=== PATIENT | male | born 1965 | race Caucasian/White ===

== ENCOUNTER 2016-10-27 09:38 | Day surgery (SDC) | payer BC ==
[2016-10-16 10:19] VITALS: BMI 32.0
[2016-10-27] MEDS ORDERED: ROCURONIUM BROMIDE 50 MG/5 ML VIAL ONE (10:29)
[2016-10-27] MEDS ORDERED: MIDAZOLAM HCL 2 MG/2 ML SINGLE DOSE VIAL ONE (10:29)
--- NOTE | 2016-10-27 11:06 | HP ---
History & Physical Update - History History: No Change - Physical Physical: No Change - Assessment Assessment: No Change - Plan Currently as noted:: Repair ventral hernia; possible mesh; pre-op evaluation done by Dr. Brigid Looney
[2016-10-27] MEDS ORDERED: DEXAMETHASONE SOD PHOSPHATE 4 MG/1 ML VIAL ONE (11:35)
[2016-10-27] MEDS ORDERED: LIDOCAINE HCL 1%, 10 MG/ML (20ML VIAL) INF ONE (11:36)
[2016-10-27] MEDS ORDERED: BUPIVACAINE HCL/PF 0.5% (5MG/ML) 10 ML VIAL IJ ONE (11:36)
[2016-10-27] MEDS ORDERED: HYDROmorphone HCL/PF 1 MG/ML VIAL (FOR PYXIS CHARGING ONLY) ONE (11:37)
[2016-10-27] MEDS ORDERED: NEOSTIGMINE METHYLSULFATE 0.5 MG/ML - 10 ML MDV ONE (11:53)
[2016-10-27] MEDS ORDERED: GLYCOPYRROLATE 0.2 MG/1 ML VIAL ONE (11:53)
--- NOTE | 2016-10-27 12:16 | OP ---
Operative Note - Note: Operative Date: 10/27/16 Pre-Operative Diagnosis: ventral hernia Operation: repair incarcerated ventral hernia Findings: 2.0 cm defect w/ incarcerated fat Post-Operative Diagnosis: Other (incarcerated ventral hernia) Surgeon: Chan Marcos Producer: Paul Scott Anesthesiologist/SHIPFITTER HELPER: Yuliana Amador Anesthesia: General Specimens Removed: fat and sac Estimated Blood Loss (mls): 10
[2016-10-27] MEDS ORDERED: ONDANSETRON 4 MG/2 ML VIAL IVPUSH PRN (12:30)
[2016-10-27] MEDS ORDERED: LACTATED RINGERS SOLUTION 1,000 ML IV SCH (12:30)
[2016-10-27] MEDS ORDERED: oxyCODONE HCL 5 MG TABLET PO PRN ×2 (12:30)
--- NOTE | 2016-10-27 12:33 | SURG ---
Surgery Enterprise Systems Administrator Note Enterprise Systems Administrator: Paul Scott PA-C Date of Service: 10/27/16 Diagnosis: Incarcerated ventral hernia Procedure: Open repair incarcerated ventral hernia (primary closure) I was present for the entirety of the operative procedure. For further detail, please refer to operative report. Visit type - Case Type Case Type: Scheduled Admission - New patient This patient is new to me today: Yes Date on this admission: 10/27/16
[2016-10-27 14:20] VITALS: TEMP 97.8
[2016-10-27 19:29] VITALS: BP 122/80; PULSE 72
--- NOTE | 2016-10-28 16:02 | PATH ---
Surgical Pathology Report Patient Name: YURY SANDOVAL [facility]. Rec. #: [id number] /Age/Gender: 1965 (Age: 51) / M Account: [id number] Location: [facility] Taken: 10/27/2016 Received: 10/27/2016 Reported: 10/28/2016 Physicians: Chan Marcos MD Specimen(s) Received HERNIA SAC AND FAT Clinical History Incarcerated ventral hernia Final Diagnosis HERNIA SAC AND FAT, VENTRAL HERNIA REPAIR: BENIGN FOCALLY MESOTHELIAL LINED FIBROMEMBRANOUS TISSUE CONSISTENT WITH HERNIA SAC AND BENIGN FATTY TISSUE. Electronically Signed Marcell Esteban M.D. Gross Description Received in formalin labeled "sac and fat of hernia" is a 4.0 x 2.2 x 1.2 cm babb-pink, irregular portion of fibromembranous tissue containing yellow, lobulated adipose tissue. Home Stager sections are submitted in one cassette. /10/27/2016 [facility]
--- NOTE | 2016-10-29 12:51 | OP ---
DATE OF OPERATION: 10/27/2016 PREOPERATIVE DIAGNOSIS: Ventral hernia. POSTOPERATIVE DIAGNOSIS: Incarcerated ventral hernia. PROCEDURE: Repair of incarcerated ventral hernia. SURGEON: Chan Marcos MD DISCHARGING MACHINE OPERATOR: Paul Scott PA-C ANESTHESIA: General. OPERATIVE FINDINGS: There was an incarcerated ventral hernia just above the umbilicus, containing incarcerated preperitoneal fat. The defect in the fascia was approximately 2 cm in greatest dimension. The rest of the findings were unremarkable. DESCRIPTION OF PROCEDURE: The patient was placed on the operating table in the supine position, and after the induction of general anesthesia, the patient's abdomen was prepped with ChloraPrep and draped in sterile fashion. A timeout was taken, and then, a midline incision made above the umbilicus and proximal for several centimeters. This was taken down through skin and subcutaneous tissue and the hernia sac identified. The sac was entered, and incarcerated preperitoneal fat and sac were excised using electrocautery and sent for pathological examination. The undersurface of the fascia was cleared, and then, the hernia repaired using multiple 0 Ti-Cron horizontal mattress sutures. Hemostasis was checked for and noted to be good, and then, the operative field was infiltrated with 0.50% Marcaine and 1% Xylocaine. The wound was irrigated with sterile saline, hemostasis verified again, and then, the incision closed in layers with interrupted 0 Vicryl for the deep subcutaneous tissue, interrupted 3-0 Vicryl for the deep dermis, and 4-0 Biosyn in a subcuticular continuous fashion to reapproximate the skin edges. Steri-Strips and dry sterile dressings were placed and the procedure terminated at this point and the patient aroused from general anesthesia and transferred to the postanesthesia care unit in stable condition, awake and alert. ESTIMATED BLOOD LOSS: Minimal. DRAINS: None. SPECIMENS: Preperitoneal fat and sac to Pathology. I, Chan Marcos MD, was physically present in the operating room from the time the patient was placed on the operating table until he was transferred to the postanesthesia care unit in my accompaniment. MD HUGO Lyles/[id number]
== END 2016-10-27 19:15 | disposition home or self-care (01) ==
LOC: JASU-SURG 09:38
PROVIDERS: ATTEND Surgery
PROC: 0WUF0JZ Supplement Abdominal Wall with Synthetic Substitute, Open Approach (ICD-10-PCS; principal; 2016-10-27 11:00)
DX: K43.6 Other and unspecified ventral hernia with obstruction, without gangrene (principal)
CPT/HCPCS: 88302-TC; 94760

== ENCOUNTER 2017-07-13 07:37 | Observation (INO) | payer BC ==
--- NOTE | 2017-07-13 07:50 | PDOC ---
History of Present Illness - General Chief Complaint: Chest Pain Stated Complaint: CHEST PAIN Time Seen by Provider: 07/13/17 07:49 - History of Present Illness Initial Comments: 07/13/17 07:49 Mr. Penn is a 52 yo male w/ pmh of HTN who presents after experiencing an episode of chest tightness, light headed-ness and palpitations earlier today. Patient works for [employer] and was walking around outside when this episode started. He reports it also involved some back tightness but denies any radiating pain. Patient reports his symptoms have mostly resolved however he wanted to come in to get checked out. Patient had otherwise been in his normal health before this. The patient denies chest pain, shortness of breath, and headache. Denies fever, chills, nausea, vomit, diarrhea and constipation. Denies dysuria, frequency, urgency and hematuria. Allergies: NKDA Past History - Past Medical History Allergies/Adverse Reactions: Allergies Allergy/AdvReac Type Severity Reaction Status Date / Time No Known Allergies Allergy Verified 07/13/17 07:39 Home Medications: Ambulatory Orders NK [No Known Home Medication] 07/13/17 Anemia: Yes COPD: No DVT: No HTN: Yes (ON NONE MEDS) - Surgical History Abdominal Surgery: Yes (hernia umbilical) - Suicide/Smoking/Psychosocial Hx Smoking Status: No Smoking History: Never smoked Have you smoked in the past 12 months: No Number of Cigarettes Smoked Daily: 0 Information on smoking cessation initiated: No Hx Alcohol Use: Yes (RARE) Drug/Substance Use Hx: No Substance Use Type: Alcohol Review of Systems - Review of Systems Comments:: 07/13/17 07:49 GENERAL/CONSTITUTIONAL: No fever or chills. No weakness. HEAD, EYES, EARS, NOSE AND THROAT: No change in vision. No ear pain or discharge. No sore throat. CARDIOVASCULAR:+Chest tightness as described with episde of lightheaded feeling. No shortness of breath RESPIRATORY: No cough, wheezing, or hemoptysis. GASTROINTESTINAL: No nausea, vomiting, diarrhea or constipation. GENITOURINARY: No dysuria, frequency, or change in urination. MUSCULOSKELETAL: +Transient back tightness. No joint or muscle swelling or pain. SKIN: No rash NEUROLOGIC: No headache, vertigo, loss of consciousness, or change in strength/ sensation. ENDOCRINE: No increased thirst. No abnormal weight change HEMATOLOGIC/LYMPHATIC: No anemia, easy bleeding, or history of blood clots. ALLERGIC/IMMUNOLOGIC: No hives or skin allergy. *Physical Exam - Vital Signs Last Vital Signs Temp Pulse Resp BP Pulse Ox 97.9 F 95 H 18 136/95 96 07/13/17 07:39 07/13/17 07:39 07/13/17 07:39 07/13/17 07:39 07/13/17 07:39 - Physical Exam Comments: 07/13/17 07:49 GENERAL: Awake, alert, and fully oriented, in no acute distress HEAD: No signs of trauma, normocephalic, atraumatic EYES: PERRLA, EOMI, sclera anicteric, conjunctiva clear ENT: Auricles normal inspection, hearing grossly normal, nares patent, oropharynx clear without exudates. Moist mucosa NECK: Normal ROM, supple, no lymphadenopathy, JVD, or masses LUNGS: No distress, speaks full sentences, clear to auscultation bilaterally HEART: Regular rate and rhythm, normal S1 and S2, no murmurs, rubs or gallops, peripheral pulses normal and equal bilaterally. ABDOMEN: Soft, nontender, normoactive bowel sounds. No guarding, no rebound. No masses EXTREMITIES: Normal inspection, Normal range of motion, no edema. No clubbing or cyanosis. NEUROLOGICAL: Cranial nerves II through XII grossly intact. Normal speech, normal gait, no focal sensorimotor deficits SKIN: Warm, Dry, normal turgor, no rashes or lesions noted. Heart Score/ECG Review - History History: Highly suspicious - Electrocardiogram EKG: Non specific repolarization disturbance - Age Age: 45-65 - Risk Factors Risk Factors Heart Score: Yes Hx Hypertension Based on the list above the patient has:: 1-2 risk factors - Troponin Troponin: </= normal limit - Score Heart Score - Total: 5 ED Treatment Course - LABORATORY CBC & Chemistry Diagram: 07/13/17 08:00 07/13/17 08:00 Medical Decision Making - Medical Decision Making 07/13/17 08:30 Mr. Penn is a 52 yo male w/ pmh as described who presents for evaluation after transient cardiac symptoms. Cardiac evaluation begun. 07/13/17 09:46 Labs grossly unconcerning as below. Initial EKG showed non-specific ST depression; resolved on 2nd EKG. Given patient's concerning history and HEART score of 5, hospitalist paged for admission for observation and cardiac evaluation. 07/13/17 09:56 Patient admitted to Hospitalist for further care. *DC/Admit/Observation/Transfer Diagnosis at time of Disposition: Chest pain Qualifiers: Chest pain type: unspecified Qualified Code(s): R07.9 - Chest pain, unspecified - Discharge Dispostion Decision to Admit order: Yes - Referrals Referrals: Cristian Melendez MD [Primary Care Provider] - - Patient Instructions - Post Discharge Activity
[2017-07-13] MEDS ORDERED: ASPIRIN 325 MG TABLET PO ONE (07:56)
[2017-07-13] MEDS ORDERED: ASPIRIN 325 MG TABLET ONE (07:57)
[2017-07-13 08:10] LABS: BASO % 0.6 % (0-2.0); EOS % 2.1 % (0-4.5); HEMATOCRIT 36.3 % (35.4-49); HEMOGLOBIN 11.6 GM/dL (11.7-16.9); MCH 21.4 pg (25.7-33.7); MCHC 31.9 g/dl (32.0-35.9); MEAN CELL VOLUME 67.2 fl (80-96); MEAN PLT VOLUME 7.7 fl (7.5-11.1); MONO % 10.1 % (3.8-10.2); NEUT % 69.2 % (42.8-82.8); PLATELET COUNT 229 K/MM3 (134-434); RBC 5.41 M/mm3 (4.00-5.60); RDW 16.7 % (11.9-15.9); WHITE BLOOD COUNT 5.9 K/mm3 (4.0-10.0)
[2017-07-13 08:34] LABS: ANION GAP 8 (8-16); BILIRUBIN,TOTAL 0.4 mg/dL (0.2-1.0); BLOOD UREA NITROGEN 14 mg/dL (7-18); CALCIUM 8.9 mg/dL (8.5-10.1); CHLORIDE 106 mmol/L (98-107); CO2 24 mmol/L (21-32); CREATININE 1.3 mg/dL (0.7-1.3); GLUCOSE,RANDOM 88 mg/dL (74-106); SGOT/AST 19 U/L (15-37); SGPT/ALT 24 U/L (12-78); SODIUM 138 mmol/L (136-145); TOT PROT 7.8 g/dl (6.4-8.2)
[2017-07-13 08:37] LABS: ALK PHOS 65 U/L (45-117)
--- NOTE | 2017-07-13 10:07 | PDOC ---
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 The pain lasted about 20 minutes, then resolved. Now has some persistent lightheadedness but no further chest pain. Previously unlimited exercise tolerance, no recent travel or unilateral leg swelling, nonsmoker, no significant family history of early heart attack or stroke. - Physicial Exam PE: 07/13/17 10:04 Vital signs normal Laying comfortably in stretcher, obese Heart is regular, lungs are clear no edema - Medical Decision Making 07/13/17 10:07 52-year-old female with history of hypertension presents with exertional chest pain this morning, now resolved. Description is concerning for anginal equivalent, he had a stress test many years ago that was normal. Chest pain protocol initiated EKG with question baseline artifact versus submillimeter ST depression in V4 through V6, a repeat EKG is normal. Troponin and chest x-ray are normal Given aspirin, will need admission for further cardiac workup Heart Score/ECG Review #1 General ECG Interpretation: Sinus Rhythm, Normal Rate, Normal Intervals, No acute ischemic changes (baseline v. sub-mm ST depression V4-V6) #2 General ECG Interpretation: Sinus Rhythm, Normal Rate, Normal Intervals, No acute ischemic changes
[2017-07-13 10:09] LABS: PLATELET ESTIMATE NORMAL
--- NOTE | 2017-07-13 10:47 | HP ---
CHIEF COMPLAINT: chest tightness, shortness of breath PCP: HISTORY OF PRESENT ILLNESS: Patient is a 52 year old male with a significant past medical history of hypertension (previously on BP meds but stopped), he reports that he has been told that he has had anemia. He is obese with a BMI of 32. He works for [employer] and was in his usual state of health until this morning. 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 He then began to develop chest tightness on flat surface walking associated with dizziness, shortness of breath and palpitations. This lasted for less than half hour, then resolved. He presents to the ED for further workup as he still feels lightheaded. Denies chest pain on exam. No further shortness of breath. Never had this chest tightness before. He does not smoke. He was told he has hypertension in the past but reports non compliance with his medications (was on Benicar). Does not take baby aspirin or any other medications. He is a patient of Dr. Truong but has not seen him for over a year. ER course was notable for: (1) trop 0.02 (2) (3) Recent Travel: PAST MEDICAL HISTORY: PAST SURGICAL HISTORY: Social History: Smoking: denies Alcohol: denies Drugs: denies Family History: Allergies No Known Allergies Allergy (Verified 07/13/17 07:39) HOME MEDICATIONS: Home Medications Medication Instructions Recorded NK [No Known Home Medication] 07/13/17 PHYSICAL EXAMINATION Vital Signs - 24 hr 07/13/17 07/13/17 07:39 08:55 Temperature 97.9 F Pulse Rate 95 H Respiratory 18 Rate Blood Pressure 136/95 O2 Sat by Pulse 96 97 Oximetry (%) GENERAL: Awake, alert, and fully oriented, in no acute distress. HEAD: Normal with no signs of trauma. EYES: Pupils equal, round and reactive to light, extraocular movements intact, sclera anicteric, conjunctiva clear. No lid lag. EARS, NOSE, THROAT: Ears normal, nares patent, oropharynx clear without exudates. Moist mucous membranes. NECK: Normal range of motion, supple without lymphadenopathy, JVD, or masses. LUNGS: Breath sounds equal, clear to auscultation bilaterally. No wheezes, and no crackles. No accessory muscle use. HEART: Regular rate and rhythm, normal S1 and S2 without murmur, rub or gallop. ABDOMEN: Soft, nontender, not distended, normoactive bowel sounds, no guarding, no rebound, no masses. No hepatomegaly or splenomegaly. MUSCULOSKELETAL: Normal range of motion at all joints. No bony deformities or tenderness. No CVA tenderness. UPPER EXTREMITIES: 2+ pulses, warm, well-perfused. No cyanosis. No clubbing. No peripheral edema. LOWER EXTREMITIES: 2+ pulses, warm, well-perfused. No calf tenderness. No peripheral edema. NEUROLOGICAL: Cranial nerves II-XII intact. Normal speech. Normal gait. PSYCHIATRIC: Cooperative. Good eye contact. Appropriate mood and affect. SKIN: Warm, dry, normal turgor, no rashes or lesions noted, normal capillary refill. Laboratory Results - last 24 hr 07/13/17 07/13/17 08:00 08:00 WBC 5.9 RBC 5.41 Hgb 11.6 L D Hct 36.3 MCV 67.2 L MCH 21.4 L D MCHC 31.9 L RDW 16.7 H Plt Count 229 D MPV 7.7 Neutrophils % 69.2 Lymphocytes % 18.0 D Monocytes % 10.1 Eosinophils % 2.1 Basophils % 0.6 Nucleated RBC % 0 Platelet Estimate Normal Polychromasia 1+ Microcytosis 1+ Sodium 138 Potassium 4.0 Chloride 106 Carbon Dioxide 24 Anion Gap 8 BUN 14 D Creatinine 1.3 D Creat Clearance w eGFR 58.20 Random Glucose 88 Calcium 8.9 Total Bilirubin 0.4 D AST 19 ALT 24 D Alkaline Phosphatase 65 D Creatine Kinase 129 Troponin I < 0.02 Total Protein 7.8 Albumin 4.0 ASSESSMENT/PLAN: Patient is a 52 year old male with a significant past medical history of hypertension (previously on BP meds but stopped), he reports that he has been told that he has had anemia. He is obese with a BMI of 32. He works for [employer] and was in his usual state of health until this morning. 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 He then began to develop chest tightness on flat surface walking associated with dizziness, shortness of breath and palpitations. This lasted for less than half hour, then resolved. He presents to the ED for further workup as he still feels lightheaded. Denies chest pain on exam. No further shortness of breath. Never had this chest tightness before. He does not smoke. He was told he has hypertension in the past but reports non compliance with his medications (was on Benicar). Does not take baby aspirin or any other medications. He is a patient of Dr. Truong but has not seen him for over a year. Chest pain Rule out ACS heart score 5 Lipid panel, hmga1c, iron studies ordered Monitor on tele trops x 1 negative EKG to be repeated prior to d/c Echo ordered Cardiology consulted Hypertension On no home meds Heme: Hx of of anemia Iron studies ordered Low MCV F.E.N . Fluids: tolerating PO Electrolytes: monitor, wnl on last cmp Nutrition: low salt Prophy: DVT: LOS < 48 hours GI: deferred Disposition: full code Hospitalist Screening - Colonoscopy Questionnaire Colonoscopy Questionnaire: Colonoscopy Questionnaire
--- NOTE | 2017-07-13 11:02 | CON.CARD ---
Consult Consult Specialty:: cardiology Reason for Consultation:: chest tightness - History of Present Illness Chief Complaint: Pt A&Ox3; asymptomatic. His and sister are present. History of Present Illness: Mr. Penn is a 52 yo white male ([employer]) w/ pmh of HTN ( medications were "not needed anymore" a few months ago), sleep apnea, and obesity, who presents after experiencing an episode of chest tightness, light headedness and palpitations earlier today. Patient works for [employer] and was walking around outside early this morning when this episode started; it was left central anterior chest wall, moderately severe (8/10) in severity, and lasted about an hour. At one point he had a numb feeling in his left arm. He reports it also involved some back tightness. Patient reports his symptoms have mostly resolved however he wanted to come in to get checked out. Patient had otherwise been in his normal health before this. (+) mental and physical stress at work The patient denies chest pain, shortness of breath, and headache. Denies fever, chills, nausea, vomit, diarrhea and constipation. Denies dysuria, frequency, urgency and hematuria. Allergies: NKDA - History Source History Provided By: Patient, Family Member, Medical Record Limitations to Obtaining History: No Limitations - Past Medical History Psych: Yes: Anxiety - Alcohol/Substance Use Hx Alcohol Use: Yes (RARE) - Smoking History Smoking history: Never smoked Have you smoked in the past 12 months: No Aproximately how many cigarettes per day: 0 Home Medications - Allergies Allergies/Adverse Reactions: Allergies Allergy/AdvReac Type Severity Reaction Status Date / Time No Known Allergies Allergy Verified 07/13/17 07:39 - Home Medications Home Medications: Ambulatory Orders NK [No Known Home Medication] 07/13/17 Family Disease History - Family Disease History Family History: Denies - Risk Factors Known Risk Factors: Yes: Age, Gender, Hypercholesterolemia, Hypertension, Physical Inactivity Vital Signs: Vital Signs Temperature 97.9 F 07/13/17 07:39 Pulse Rate 95 H 07/13/17 07:39 Respiratory Rate 18 07/13/17 07:39 Blood Pressure 136/95 07/13/17 07:39 O2 Sat by Pulse Oximetry (%) 97 07/13/17 08:55 Constitutional: Yes: Well Nourished, Anxious Eyes: Yes: WNL HENT: Yes: WNL - Other Data Labs, Other Data: CBC, BMP 07/13/17 08:00 07/13/17 08:00 Troponin, BNP 07/13/17 08:00 Troponin I < 0.02 Troponin, BNP 07/13/17 08:00 Troponin I < 0.02 Imaging - Results Chest X-ray: Image Reviewed (no acute pathology) EKG: Image Reviewed (NSR; LAD;) Problem List - Problems (1) Chest tightness Assessment/Plan: chest tightness with exertion. Relatively sedentary lifestyle. Obesity Sleep apnea. Plan: Serial EKG Serial TNI (initial is < 0.02). ASA Stress treadmill MIBI if no significant increase in TNI. Code(s): R07.89 - OTHER CHEST PAIN (2) HTN (hypertension) Assessment/Plan: Serial BP checks; pt had been on medications until a few months ago because he reports no longer needing them. F/u ECHO for LVEF, wall thickness and motion (?septal changes on EKG). Code(s): I10 - ESSENTIAL (PRIMARY) HYPERTENSION (3) Obesity Assessment/Plan: Pt weighed 190 lbs in his 20s; he now weighs 270 lbs, with increase predominately truncal. Discussed need to make diet and exercise changes. Code(s): E66.9 - OBESITY, UNSPECIFIED (4) Physically inactive Code(s): Z72.3 - LACK OF PHYSICAL EXERCISE
[2017-07-13 11:56] LABS: CHOLESTEROL 142 mg/dL (50-200); TRIGLYCERIDES 168 mg/dL (35-160)
[2017-07-13 12:03] LABS: HDL CHOLESTEROL 35 mg/dL (40-60)
--- NOTE | 2017-07-13 13:31 | EKG ---
Test Reason : Blood Pressure : / mmHG Vent. Rate : 095 BPM Atrial Rate : 095 BPM P-R Int : 178 ms QRS Dur : 102 ms QT Int : 356 ms P-R-T Axes : 045 -56 049 degrees QTc Int : 447 ms NORMAL SINUS RHYTHM INCOMPLETE RIGHT BUNDLE BRANCH BLOCK LEFT ANTERIOR FASCICULAR BLOCK possible SEPTAL INFARCT (CITED ON OR BEFORE 17-JUL-1998) ABNORMAL ECG Confirmed by MD Naif, Girma ([id number]) on 07/13/2017 1:31:44 PM Referred By: Confirmed By:Girma Disla MD
--- NOTE | 2017-07-13 14:44 | EKG ---
Test Reason : Blood Pressure : / mmHG Vent. Rate : 079 BPM Atrial Rate : 079 BPM P-R Int : 162 ms QRS Dur : 102 ms QT Int : 382 ms P-R-T Axes : 039 -43 019 degrees QTc Int : 438 ms NORMAL SINUS RHYTHM LEFT AXIS DEVIATION MINIMAL VOLTAGE CRITERIA FOR LVH, MAY BE NORMAL VARIANT SEPTAL INFARCT (CITED ON OR BEFORE 17-JUL-1998) ABNORMAL ECG Confirmed by MD Naif, Girma ([id number]) on 07/13/2017 2:43:34 PM Referred By: Confirmed By:Girma Disla MD
[2017-07-13] MEDS ORDERED: ATORVASTATIN CA 20 MG TABLET (FP) PO SCH (22:00)
[2017-07-13 22:41] VITALS: BMI 32.5
[2017-07-14 06:27] LABS: BASO % 0.6 % (0-2.0); EOS % 2.7 % (0-4.5); HEMATOCRIT 32.5 % (35.4-49); HEMOGLOBIN 10.4 GM/dL (11.7-16.9); LYMPH % 23.7 % (8-40); MCH 21.4 pg (25.7-33.7); MEAN CELL VOLUME 66.8 fl (80-96); MEAN PLT VOLUME 8.3 fl (7.5-11.1); MONO % 10.1 % (3.8-10.2); NEUT % 62.9 % (42.8-82.8); PLATELET COUNT 218 K/MM3 (134-434); RBC 4.86 M/mm3 (4.00-5.60); RDW 16.7 % (11.9-15.9); WHITE BLOOD COUNT 6.2 K/mm3 (4.0-10.0)
[2017-07-14 06:36] LABS: ADD RBC MORPHOLOGY YES
[2017-07-14 06:47] LABS: ALBUMIN 3.5 g/dl (3.4-5.0); ANION GAP 5 (8-16); BLOOD UREA NITROGEN 16 mg/dL (7-18); CALCIUM 8.6 mg/dL (8.5-10.1); CHLORIDE 106 mmol/L (98-107); CO2 28 mmol/L (21-32); GLUCOSE,RANDOM 85 mg/dL (74-106); MAGNESIUM 2.2 mg/dL (1.8-2.4); POTASSIUM 4.5 mmol/L (3.5-5.1); SODIUM 139 mmol/L (136-145)
[2017-07-14 06:50] LABS: ALK PHOS 58 U/L (45-117); BILIRUBIN,TOTAL 0.7 mg/dL (0.2-1.0); CREATININE 1.3 mg/dL (0.7-1.3); SGOT/AST 18 U/L (15-37); SGPT/ALT 23 U/L (12-78); TOT PROT 6.7 g/dl (6.4-8.2)
--- NOTE | 2017-07-14 08:42 | PN ---
Physical Exam: SUBJECTIVE: Patient seen and examined at the bedside. No chest pain, no shortness of breath. Reports just feeling foggy, but no longer dizzy. OBJECTIVE: Had 7 beats of NVST this morning, no chest pain for stress test today Trops negative x 3 Vital Signs Period Temp Pulse Resp BP Sys/Gamino Pulse Ox Last 24 Hr 98 F-98.6 F 64-78 12-18 117-138/81-98 97-99 GENERAL: Awake, alert, and fully oriented, in no acute distress. HEAD: Normal with no signs of trauma. EYES: Pupils equal, round and reactive to light, extraocular movements intact, sclera anicteric, conjunctiva clear. No lid lag. EARS, NOSE, THROAT: Ears normal, nares patent, oropharynx clear without exudates. Moist mucous membranes. NECK: Normal range of motion, supple without lymphadenopathy, JVD, or masses. LUNGS: Breath sounds equal, clear to auscultation bilaterally. No wheezes, and no crackles. No accessory muscle use. HEART: Regular rate and rhythm, normal S1 and S2 without murmur, rub or gallop. ABDOMEN: Soft, obese abdomen MUSCULOSKELETAL: Normal range of motion at all joints. No bony deformities or tenderness. No CVA tenderness. UPPER EXTREMITIES: No peripheral edema. LOWER EXTREMITIES: No peripheral edema. NEUROLOGICAL: Cranial nerves II-XII intact. Normal speech. Normal gait. PSYCHIATRIC: Cooperative. Good eye contact. Appropriate mood and affect. SKIN: Warm, dry, normal turgor, no rashes or lesions noted, normal capillary refill. Laboratory Results - last 24 hr 07/13/17 07/13/17 07/13/17 08:00 08:00 08:00 WBC RBC Hgb Hct MCV MCH MCHC RDW Plt Count MPV Neutrophils % Lymphocytes % Monocytes % Eosinophils % Basophils % Nucleated RBC % Platelet Estimate Normal Polychromasia 1+ Microcytosis 1+ Sodium 138 Potassium 4.0 Chloride 106 Carbon Dioxide 24 Anion Gap 8 BUN 14 D Creatinine 1.3 D Creat Clearance w eGFR 58.20 Random Glucose 88 Hemoglobin A1c % 5.5 Calcium 8.9 Magnesium Ferritin Total Bilirubin 0.4 D AST 19 ALT 24 D Alkaline Phosphatase 65 D Creatine Kinase 129 Troponin I < 0.02 Total Protein 7.8 Albumin 4.0 Triglycerides 168 H Cholesterol 142 D Total LDL Cholesterol 93 HDL Cholesterol 35 L TSH 4.66 H Free T4 07/13/17 07/13/17 07/13/17 14:20 18:40 18:40 WBC RBC Hgb Hct MCV MCH MCHC RDW Plt Count MPV Neutrophils % Lymphocytes % Monocytes % Eosinophils % Basophils % Nucleated RBC % Platelet Estimate Polychromasia Microcytosis Sodium Potassium Chloride Carbon Dioxide Anion Gap BUN Creatinine Creat Clearance w eGFR Random Glucose Hemoglobin A1c % Calcium Magnesium Ferritin Total Bilirubin AST ALT Alkaline Phosphatase Creatine Kinase Troponin I 0.02 < 0.02 Total Protein Albumin Triglycerides Cholesterol Total LDL Cholesterol HDL Cholesterol TSH Free T4 0.93 07/14/17 07/14/17 07/14/17 06:00 06:00 06:00 WBC 6.2 RBC 4.86 Hgb 10.4 L D Hct 32.5 L MCV 66.8 L MCH 21.4 L MCHC 32.0 RDW 16.7 H Plt Count 218 MPV 8.3 Neutrophils % 62.9 Lymphocytes % 23.7 D Monocytes % 10.1 Eosinophils % 2.7 Basophils % 0.6 Nucleated RBC % 0 Platelet Estimate Polychromasia Microcytosis Sodium 139 Potassium 4.5 Chloride 106 Carbon Dioxide 28 Anion Gap 5 L BUN 16 Creatinine 1.3 Creat Clearance w eGFR 58.20 Random Glucose 85 Hemoglobin A1c % Calcium 8.6 Magnesium 2.2 Ferritin 3.929 L Cancelled Total Bilirubin 0.7 D AST 18 ALT 23 Alkaline Phosphatase 58 Creatine Kinase Troponin I Total Protein 6.7 Albumin 3.5 Triglycerides Cholesterol Total LDL Cholesterol HDL Cholesterol TSH Free T4 Active Medications Generic Name Dose Route Start Last Admin Trade Name Freq PRN Reason Stop Dose Admin Aspirin 81 mg 07/14/17 10:00 Ecotrin - PO DAILY ON LICENSE OF [facility] Atorvastatin Calcium 20 mg 07/13/17 22:00 07/13/17 21:28 Lipitor - PO 20 mg HS ON LICENSE OF [facility] Administration ASSESSMENT/PLAN: Patient is a 52 year old male with a significant past medical history of hypertension (previously on BP meds but stopped), he reports that he has been told that he has had anemia and is s/p hernia repair on 10/2016 . Patient works for [employer] and was in his usual state of health until yesterday when he reported that he was ambulating around doing warrant searches and was climbing stairs without any difficulty. He then began to develop chest tightness on flat surface walking associated with dizziness, shortness of breath and palpitations. This lasted for less than half hour, then resolved. For stress test today
--- NOTE | 2017-07-14 09:49 | PN ---
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 Patient works for [employer] and was walking around outside early this morning when this episode started; it was left central anterior chest wall, moderately severe (8/10) in severity, and lasted about an hour. At one point he had a numb feeling in his left arm. He reports it also involved some back tightness. Patient reports his symptoms have mostly resolved however he wanted to come in to get checked out. Patient had otherwise been in his normal health before this. (+) mental and physical stress at work - Current Medication List Current Medications: Active Medications Aspirin (Ecotrin -) 81 mg PO DAILY GHANSHYAM Atorvastatin Calcium (Lipitor -) 20 mg PO HS GHANSHYAM Last Admin: 07/13/17 21:28 Dose: 20 mg - Objective Vital Signs: Vital Signs Temperature 98.2 F 07/14/17 02:00 Pulse Rate 68 07/14/17 07:32 Respiratory Rate 18 07/14/17 07:32 Blood Pressure 130/90 07/14/17 07:32 O2 Sat by Pulse Oximetry (%) 99 07/14/17 07:26 Eyes: Yes: WNL, Conjunctiva Clear, EOM Intact HENT: Yes: WNL, Atraumatic, Normocephalic Neck: Yes: WNL, Supple, Trachea Midline Cardiovascular: Yes: WNL, Regular Rate and Rhythm Respiratory: Yes: WNL, Regular, CTA Bilaterally Gastrointestinal: Yes: WNL, Normal Bowel Sounds Genitourinary: Yes: WNL Musculoskeletal: Yes: WNL Extremities: Yes: WNL Edema: No Integumentary: Yes: WNL Neurological: Yes: WNL, Alert, Oriented ...Motor Strength: WNL Psychiatric: Yes: WNL Labs: CBC, BMP 07/14/17 06:00 07/14/17 06:00 Laboratory Tests 07/13/17 07/13/17 07/13/17 08:00 08:00 08:00 WBC 5.9 RBC 5.41 Hgb 11.6 L D Hct 36.3 MCV 67.2 L MCH 21.4 L D MCHC 31.9 L RDW 16.7 H Plt Count 229 D MPV 7.7 Neutrophils % 69.2 Lymphocytes % 18.0 D Monocytes % 10.1 Eosinophils % 2.1 Basophils % 0.6 Nucleated RBC % 0 Platelet Estimate Normal Polychromasia 1+ Microcytosis 1+ Sodium 138 Potassium 4.0 Chloride 106 Carbon Dioxide 24 Anion Gap 8 BUN 14 D Creatinine 1.3 D Creat Clearance w eGFR 58.20 Random Glucose 88 Hemoglobin A1c % 5.5 Calcium 8.9 Magnesium Ferritin Total Bilirubin 0.4 D AST 19 ALT 24 D Alkaline Phosphatase 65 D Creatine Kinase 129 Troponin I < 0.02 Total Protein 7.8 Albumin 4.0 Triglycerides 168 H Cholesterol 142 D Total LDL Cholesterol 93 HDL Cholesterol 35 L TSH 4.66 H Free T4 07/13/17 07/13/17 07/13/17 14:20 18:40 18:40 WBC RBC Hgb Hct MCV MCH MCHC RDW Plt Count MPV Neutrophils % Lymphocytes % Monocytes % Eosinophils % Basophils % Nucleated RBC % Platelet Estimate Polychromasia Microcytosis Sodium Potassium Chloride Carbon Dioxide Anion Gap BUN Creatinine Creat Clearance w eGFR Random Glucose Hemoglobin A1c % Calcium Magnesium Ferritin Total Bilirubin AST ALT Alkaline Phosphatase Creatine Kinase Troponin I 0.02 < 0.02 Total Protein Albumin Triglycerides Cholesterol Total LDL Cholesterol HDL Cholesterol TSH Free T4 0.93 07/14/17 07/14/17 07/14/17 06:00 06:00 06:00 WBC 6.2 RBC 4.86 Hgb 10.4 L D Hct 32.5 L MCV 66.8 L MCH 21.4 L MCHC 32.0 RDW 16.7 H Plt Count 218 MPV 8.3 Neutrophils % 62.9 Lymphocytes % 23.7 D Monocytes % 10.1 Eosinophils % 2.7 Basophils % 0.6 Nucleated RBC % 0 Platelet Estimate Polychromasia Microcytosis Sodium 139 Potassium 4.5 Chloride 106 Carbon Dioxide 28 Anion Gap 5 L BUN 16 Creatinine 1.3 Creat Clearance w eGFR 58.20 Random Glucose 85 Hemoglobin A1c % Calcium 8.6 Magnesium 2.2 Ferritin 3.929 L Cancelled Total Bilirubin 0.7 D AST 18 ALT 23 Alkaline Phosphatase 58 Creatine Kinase Troponin I Total Protein 6.7 Albumin 3.5 Triglycerides Cholesterol Total LDL Cholesterol HDL Cholesterol TSH Free T4 Assessment/Plan lima (1) Chest tightness Assessment/Plan: chest tightness with exertion. Relatively sedentary lifestyle. Obesity Sleep apnea. Plan: Serial EKG Serial TNI (initial is < 0.02). ASA Stress treadmill MIBI negative for ischemia Code(s): R07.89 - OTHER CHEST PAIN (2) HTN (hypertension) Assessment/Plan: echo wnl (3) Obesity Assessment/Plan: Pt weighed 190 lbs in his 20s; he now weighs 270 lbs, with increase predominately truncal. Discussed need to make diet and exercise changes. Code(s): E66.9 - OBESITY, UNSPECIFIED (4) Physically inactive Code(s): Z72.3 - LACK OF PHYSICAL EXERCISE may be folloved as outpatient.
[2017-07-14] MEDS ORDERED: ASPIRIN COATED 81 MG TABLET.EC PO SCH (10:00)
[2017-07-14 13:16] VITALS: BP 135/90; PULSE 72; TEMP 98.4
--- NOTE | 2017-07-14 15:29 | DS ---
Physical Exam: SUBJECTIVE: Patient seen and examined at the bedside. No further chest pain, feels well today. Not short of breath. OBJECTIVE: Stress test negative, troponins negative Started back on Benicar Appointment made for patient to see Dr. Cabrera, 10:00 a.m. on July 15 - Dr. Abraham is on vacation. Vital Signs Period Temp Pulse Resp BP Sys/Gamino Pulse Ox Last 24 Hr 98.2 F-98.6 F 64-72 12-18 117-138/81-98 99-99 PHYSICAL EXAM GENERAL: Awake, alert, and fully oriented, in no acute distress. HEAD: Normal with no signs of trauma. EYES: Pupils equal, round and reactive to light, extraocular movements intact, sclera anicteric, conjunctiva clear. No lid lag. EARS, NOSE, THROAT: Ears normal, nares patent, oropharynx clear without exudates. Moist mucous membranes. NECK: Normal range of motion, supple without lymphadenopathy, JVD, or masses. LUNGS: Breath sounds equal, clear to auscultation bilaterally. No wheezes, and no crackles. No accessory muscle use. HEART: Regular rate and rhythm, normal S1 and S2 without murmur, rub or gallop. ABDOMEN: Soft, obese abdomen MUSCULOSKELETAL: Normal range of motion at all joints. No bony deformities or tenderness. No CVA tenderness. UPPER EXTREMITIES: No peripheral edema. LOWER EXTREMITIES: No peripheral edema. NEUROLOGICAL: Cranial nerves II-XII intact. Normal speech. Normal gait. PSYCHIATRIC: Cooperative. Good eye contact. Appropriate mood and affect. SKIN: Warm, dry, normal turgor, no rashes or lesions noted, normal capillary refill. LABS Laboratory Results - last 24 hr 07/13/17 07/13/17 07/13/17 14:20 18:40 18:40 WBC RBC Hgb Hct MCV MCH MCHC RDW Plt Count MPV Neutrophils % Lymphocytes % Monocytes % Eosinophils % Basophils % Nucleated RBC % Sodium Potassium Chloride Carbon Dioxide Anion Gap BUN Creatinine Creat Clearance w eGFR Random Glucose Calcium Magnesium Ferritin Total Bilirubin AST ALT Alkaline Phosphatase Troponin I 0.02 < 0.02 Total Protein Albumin Free T4 0.93 07/14/17 07/14/17 07/14/17 06:00 06:00 06:00 WBC 6.2 RBC 4.86 Hgb 10.4 L D Hct 32.5 L MCV 66.8 L MCH 21.4 L MCHC 32.0 RDW 16.7 H Plt Count 218 MPV 8.3 Neutrophils % 62.9 Lymphocytes % 23.7 D Monocytes % 10.1 Eosinophils % 2.7 Basophils % 0.6 Nucleated RBC % 0 Sodium 139 Potassium 4.5 Chloride 106 Carbon Dioxide 28 Anion Gap 5 L BUN 16 Creatinine 1.3 Creat Clearance w eGFR 58.20 Random Glucose 85 Calcium 8.6 Magnesium 2.2 Ferritin 3.929 L Cancelled Total Bilirubin 0.7 D AST 18 ALT 23 Alkaline Phosphatase 58 Troponin I Total Protein 6.7 Albumin 3.5 Free T4 HOSPITAL COURSE: Date of Admission:07/13/17 Date of Discharge: 07/14/17 Patient is a 52 year old male with a significant past medical history of hypertension (previously on BP meds but stopped), he reports that he has been told that he has had anemia. He is obese with a BMI of 32. He works for [employer] and was in his usual state of health until this morning. 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 He then began to develop chest tightness on flat surface walking associated with dizziness, shortness of breath and palpitations. This lasted for less than half hour, then resolved. He presents to the ED for further workup as he still feels lightheaded. Denies chest pain on exam. No further shortness of breath. Never had this chest tightness before. He does not smoke. He was told he has hypertension in the past but reports non compliance with his medications (was on Benicar). Does not take baby aspirin or any other medications. CV: Chest pain Ruled out ACS by chimney builder helper Stress test negative Echo reviewed Started on Benicar for BP control Patient to follow up with cardiology on discharge Iron studies pending, patient to see his PCP tomorrow Started on Lipitor daily, ASA and Benicar Hypertension Started on Benicar 20mg daily Heme: Hx of of anemia Iron studies ordered and pending Low MCV Follow up with PCP Pulm: Sleep study as an outpatient Disposition: full code. Patient in agreement to follow up with Dr. Galvez within 2 weeks of discharge. Willing to see Dr. Melendez and follow up with hematology studies. BP monitoring as well as follow up with mildly elevated TSH. Minutes to complete discharge: 60 Discharge Summary Reason For Visit: CHEST PAIN Current Active Problems Chest pain (Acute) Chest tightness (Acute) HTN (hypertension) (Acute) Obesity (Acute) Physically inactive (Acute) Condition: Stable - Instructions Diet, Activity, Other Instructions: Mr. Penn Follow up on Hematology/iron studies with . Please follow up with Dr. Galvez (cardiology) within 2 weeks for follow up. New Medications: Benicar 20mg daily for high blood pressure Lipitor 20mg at night for cholesterol Aspirin 81mg daily Your TSH (thyroid function test) was mildly elevated here, please repeat this test with your primary physician. Please call me with any questions that you may have. Lakeisha Moreno, IVETH [facility] [phone] Referrals: Cristian Melendez MD [Primary Care Provider] - (Please see Dr. Cabrera, 10: 00 a.m. on July 15 - Dr. Abraham is on vacation. ) Vasu Nunez MD [Staff Physician] - 2 Weeks Disposition: HOME - Home Medications Comprehensive Discharge Medication List: Ambulatory Orders Aspirin Coated [Ecotrin -] 81 mg PO DAILY #30 tablet.ec 07/14/17 Atorvastatin Ca [Lipitor] 20 mg PO HS #30 tablet 07/14/17 Olmesartan Medoxomil [Benicar] 20 mg PO DAILY #30 tablet 07/14/17 This patient is new to me today: No Emergency Visit: Yes ED Registration Date: 07/13/17 Care time: The patient presented to the Emergency Department on the above date and was hospitalized for further evaluation of their emergent condition. Critical Care patient: No - Discharge Referral Referred to [facility] Med P.C.: No
[2017-07-15 08:11] LABS: SERUM IRON SATURATION 7 % (15-55); TOTAL IRON BINDING CAPACITY 399 ug/dL (250-450); UIBC 372 ug/dL (111-343)
--- NOTE | 2017-07-15 13:28 | EKG ---
Test Reason : Blood Pressure : / mmHG Vent. Rate : 073 BPM Atrial Rate : 073 BPM P-R Int : 188 ms QRS Dur : 120 ms QT Int : 408 ms P-R-T Axes : 054 -41 045 degrees QTc Int : 449 ms NORMAL SINUS RHYTHM LEFT AXIS DEVIATION LEFT VENTRICULAR HYPERTROPHY WITH QRS WIDENING ABNORMAL ECG WHEN COMPARED WITH ECG OF 13-JUL-2017 09:25, NO SIGNIFICANT CHANGE WAS FOUND Confirmed by SUSAN STUBBS, BRIDGETT ([id number]) on 07/15/2017 1:27:42 PM Referred By: MARY RUTHERFORD Confirmed By:BRIDGETT DAVIS MD
== END 2017-07-14 16:00 | disposition home or self-care (01) ==
LOC: JER 07:37 → JERBED 09:56 → J2W 21:08
PROVIDERS: ADMIT Internal Medicine; ATTEND Nurse Practitioner Family
DX: R07.89 Other chest pain (principal); I10 Essential (primary) hypertension; D64.9 Anemia, unspecified; E66.9 Obesity, unspecified; Z68.32 Body mass index [BMI] 32.0-32.9, adult; G47.30 Sleep apnea, unspecified; Z72.3 Lack of physical exercise
CPT/HCPCS: 36415; 71046-TC-FY; 78452-TC; 80053; 80061; 82550; 82728; 83036; 83540; 83550; 83721; 83735; 84439; 84443; 84484; 85025; 93005; 93010; 93017; 93306-TC; 99285-25; A9502; G0378

== ENCOUNTER 2019-01-20 17:17 | Inpatient (IN) | payer BC ==
[2019-01-20 18:01] LABS: MCHC 28.8 g/dl (32.0-35.9); MEAN CELL VOLUME 59.1 fl (80-96); MEAN PLT VOLUME 7.5 fl (7.5-11.1); PLATELET COUNT 270 K/MM3 (134-434); RBC 4.02 M/mm3 (4.00-5.60); RDW 16.8 % (11.9-15.9); WHITE BLOOD COUNT 4.4 K/mm3 (4.0-10.8)
[2019-01-20 18:04] LABS: HEMATOCRIT 23.8 % (35.4-49); HEMOGLOBIN 6.8 GM/dl (11.7-16.9); INR 1.49 (0.82-1.09); PROTHROMBIN TIME (PATIENT) 16.6 SEC (10.2-13.0)
[2019-01-20 18:09] LABS: ALBUMIN 3.4 g/dl (3.4-5.0); BILIRUBIN,TOTAL 0.7 mg/dl (0.2-1); CALCIUM 8.4 mg/dl (8.5-10); CREATININE 1.1 mg/dl (0.55-1.3); POTASSIUM 4.1 mmol/L (3.5-5.1); TOT PROT 6.3 g/dl (6.4-8.2)
--- NOTE | 2019-01-20 18:43 | HP ---
CHIEF COMPLAINT: Fatigue PCP: Dr. Melendez HISTORY OF PRESENT ILLNESS: 53 year-old male with a PMH significant for HTN, HLD, chronic anemia, sleep apnea, and anxiety who went to see his PCP Dr. Melendez yesterday for symptoms of fatigue and QUEEN x [address] Melendez did blood work and told the patient today his Hgb was 7.6 and he should come to the ED. On arrival to the ED, repeat blood work showed Hgb 6.8. Patient has a history of anemia, no previous transfusions. He has a family history of thalassemia and cancers. Denies chest pain, palpitations, orthopnea, lower extremity edema. Denies fever , sweats, chills. Had a viral illness over . 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 Smoking: never Alcohol: rare Drugs: no Family history: father 64 esophageal cancer with h/o thalassemia; mother 63 metastatic breast cancer; sister alive 61 with liver cancer; brother alive 57 with prostate cancer; 3 sisters s&w; 2 nieces with thalassemia; 2 children a&w Allergies No Known Allergies Allergy (Verified 01/20/19 17:20) HOME MEDICATIONS: Home Medications Medication Instructions Recorded NK [No Known Home Medication] 01/20/19 REVIEW OF SYSTEMS CONSTITUTIONAL: +fatigue Absent: fever, chills, diaphoresis, generalized weakness, malaise, loss of appetite, weight change HEENT: Absent: rhinorrhea, nasal congestion, throat pain, throat swelling, difficulty swallowing, mouth swelling, ear pain, eye pain, visual changes CARDIOVASCULAR: Absent: chest pain, syncope, palpitations, irregular heart rate, lightheadedness , peripheral edema RESPIRATORY: +QUEEN Absent: cough, shortness of breath, dyspnea with exertion, orthopnea, wheezing, stridor, hemoptysis GASTROINTESTINAL: Absent: abdominal pain, abdominal distension, nausea, vomiting, diarrhea, constipation, melena, hematochezia GENITOURINARY: Absent: dysuria, frequency, urgency, hesitancy, hematuria, flank pain, genital pain MUSCULOSKELETAL: Absent: myalgia, arthralgia, joint swelling, back pain, neck pain SKIN: Absent: rash, itching, pallor HEMATOLOGIC/IMMUNOLOGIC: Absent: easy bleeding, easy bruising, lymphadenopathy, frequent infections ENDOCRINE: Absent: unexplained weight gain, unexplained weight loss, heat intolerance, cold intolerance NEUROLOGIC: Absent: headache, focal weakness or paresthesias, dizziness, unsteady gait, seizure, mental status changes, bladder or bowel incontinence PSYCHIATRIC: Absent: anxiety, depression, suicidal or homicidal ideation, hallucinations. PHYSICAL EXAMINATION Vital Signs - 24 hr 01/20/19 17:17 Temperature 99.1 F Pulse Rate 79 Respiratory 18 Rate Blood Pressure 137/62 O2 Sat by Pulse 100 Oximetry (%) GENERAL: Awake, alert, and fully oriented, in no acute distress. HEAD: Normal with no signs of trauma. EYES: Pupils equal, round and reactive to light, extraocular movements intact, sclera anicteric, conjunctiva clear. LUNGS: Breath sounds equal, clear to auscultation bilaterally. No wheezes, and no crackles. No accessory muscle use. HEART: Regular rate and rhythm, normal S1 and S2 ABDOMEN: Soft, nontender, not distended MUSCULOSKELETAL: Normal range of motion at all joints. No bony deformities or tenderness. No CVA tenderness. UPPER EXTREMITIES: 2+ pulses, warm, well-perfused. No cyanosis. No clubbing. No peripheral edema. LOWER EXTREMITIES: 2+ pulses, warm, well-perfused. No calf tenderness. No peripheral edema. NEUROLOGICAL: Cranial nerves II-XII intact. Normal speech. Laboratory Results - last 24 hr 01/20/19 01/20/19 01/20/19 17:45 17:45 17:45 WBC 4.4 RBC 4.02 Hgb 6.8 L* Hct 23.8 L MCV 59.1 L MCH 17.0 L MCHC 28.8 L RDW 16.8 H Plt Count 270 MPV 7.5 Absolute Neuts (auto) 2.5 Neutrophils % Electric Motor Repairman Lymphocytes % Electric Motor Repairman Monocytes % Electric Motor Repairman Eosinophils % Electric Motor Repairman Basophils % Electric Motor Repairman PT with INR INR PTT (Actin FS) 33.7 Sodium 136 Potassium 4.1 Chloride 107 Carbon Dioxide 25 Anion Gap 4 L BUN 21.0 H Creatinine 1.1 Est GFR (CKD-EPI)AfAm 88.98 Est GFR (CKD-EPI)NonAf 76.77 Random Glucose 96 Calcium 8.4 L Total Bilirubin 0.7 AST 18 ALT 24 Alkaline Phosphatase 39 L Total Protein 6.3 L Albumin 3.4 Stool Occult Blood 01/20/19 01/20/19 17:45 18:10 WBC RBC Hgb Hct MCV MCH MCHC RDW Plt Count MPV Absolute Neuts (auto) Neutrophils % Lymphocytes % Monocytes % Eosinophils % Basophils % PT with INR 16.6 H INR 1.49 H PTT (Actin FS) Sodium Potassium Chloride Carbon Dioxide Anion Gap BUN Creatinine Est GFR (CKD-EPI)AfAm Est GFR (CKD-EPI)NonAf Random Glucose Calcium Total Bilirubin AST ALT Alkaline Phosphatase Total Protein Albumin Stool Occult Blood Negative ASSESSMENT/PLAN: 53 year-old male with a PMH significant for HTN, HLD, chronic anemia, sleep apnea, and anxiety. Admitted for symptomatic microcytic anemia requiring transfusion. Symptomatic chronic microcytic anemia --transfuse 2U PRBC; Lasix IVP 40mg x 1 in between units --family history of thalassemia --hematology consult requested --iron studies pending Hypertension --BP stable --not on anti-hypertensives Hyperlipidemia --not on statin therapy Sleep apnea --does not use CPAP Anxiety --not on meds FEN Fluids: PO intake adequate Electrolytes: replete as indicated Nutrition: low sodium DVT prophylaxis: SCDs, oob, early ambulation Dispo: continues to require inpatient care. Full code. Visit type - Emergency Visit Emergency Visit: Yes ED Registration Date: 01/20/19 Care time: The patient presented to the Emergency Department on the above date and was hospitalized for further evaluation of their emergent condition. - New Patient This patient is new to me today: Yes Date on this admission: 01/20/19 - Critical Care Critical Care patient: No
--- NOTE | 2019-01-20 18:59 | PDOC ---
Documentation entered by Oscar Sanders SCRIBE, acting as scribe for Gallito Palacios MD. Gallito Palacios MD: This documentation has been prepared by the philleTommy Aiswarya, SCRIBE, under my direction and personally reviewed by me in its entirety. I confirm that the documentation accurately reflects all work, treatment, procedures, and medical decision making performed by me. History of Present Illness - General Chief Complaint: Abnormal Lab Results (Outside) Stated Complaint: LOW BLOOD LEVELS, POSSIBLY NEED BLD TRANSFUSION History Source: Patient Exam Limitations: No Limitations - History of Present Illness Initial Comments: 01/20/19 19:01 The patient is a 53 year old female, with a significant PMH of anemia and HTN, who presents to the emergency department from his PCP office, , for evaluation of low hemoglobin level and for possible need for a blood transfusion. Patient states last week he endorsed associated symptoms of fevers , night sweats, non bilious and non bloody vomiting. He reports symptoms resolved but currently endorses generalized weakness, sob, fatigue and dizziness for the past few days. Patient states he went Dr. Samaniego yesterday where blood was drawn where he had a hemoglobin of 7.6. The patient denies chest pain and headache.Denies fever, chills, nausea, vomiting, diarrhea and constipation. Denies dysuria, frequency, urgency and hematuria. Allergies: NKDA Past surgical history: umbilical hernia repair Social history: None reported PCP: Dionne Past History - Past Medical History Allergies/Adverse Reactions: Allergies Allergy/AdvReac Type Severity Reaction Status Date / Time No Known Allergies Allergy Verified 01/20/19 17:20 Home Medications: Ambulatory Orders NK [No Known Home Medication] 01/20/19 Anemia: Yes COPD: No DVT: No HTN: Yes - Surgical History Abdominal Surgery: Yes (umbilical hernia repair) - Psycho Social/Smoking Cessation Hx Smoking Status: No Smoking History: Never smoked Have you smoked in the past 12 months: No Number of Cigarettes Smoked Daily: 0 Hx Alcohol Use: Yes (RARE) Drug/Substance Use Hx: No Substance Use Type: Alcohol Review of Systems - Review of Systems Able to Perform ROS?: Yes Comments:: 01/20/19 19:01 A complete review of 10 out of 10 review of systems is taken and is negative apart from what is previously mentioned below and in the HPI. *Physical Exam - Vital Signs Last Vital Signs Temp Pulse Resp BP Pulse Ox 97.8 F 78 18 143/84 99 01/20/19 18:51 01/20/19 18:51 01/20/19 18:51 01/20/19 18:51 01/20/19 18:51 - Physical Exam 01/20/19 19:01 Vitals: Triage Vital signs reviewed General Appearance: no acute distress, well nourished well developed, Head: Atraumatic, normocephalic Eyes:+pale conjunctiva. Pupils equal reactive round, extraocular movement intact Lungs: Clear to auscultation bilateral, good air movement bilaterally, Abdomen: Soft, nondistended, normal bowel sounds, nontender to palpation Rectal:Normal. Extremities: Full range of motion to all extremities, no cyanosis, clubbing, or edema Skin: Warm and dry, no rashes or lesions, no petechiae Neuro: AOX3 Psych: normal mood, normal affect Heart Score/ECG Review - ECG Impressions Comment:: 01/20/19 19:03 EKG performed at 1826 demonstrates normal sinus rhythm left axis deviation no ST elevations or T wave inversions Interpreted by pr ED Treatment Course - LABORATORY CBC & Chemistry Diagram: 01/20/19 17:45 01/20/19 17:45 - ADDITIONAL ORDERS Additional order review: Laboratory Results 01/20/19 01/20/19 01/20/19 18:10 17:45 17:45 PT with INR 16.6 H INR 1.49 H PTT (Actin FS) Sodium Potassium Chloride Carbon Dioxide Anion Gap BUN Creatinine Est GFR (CKD-EPI)AfAm Est GFR (CKD-EPI)NonAf Random Glucose Calcium Total Bilirubin AST ALT Alkaline Phosphatase Total Protein Albumin Stool Occult Blood Negative Crossmatch See Detail 01/20/19 01/20/19 17:45 17:45 PT with INR INR PTT (Actin FS) 33.7 Sodium 136 Potassium 4.1 Chloride 107 Carbon Dioxide 25 Anion Gap 4 L BUN 21.0 H Creatinine 1.1 Est GFR (CKD-EPI)AfAm 88.98 Est GFR (CKD-EPI)NonAf 76.77 Random Glucose 96 Calcium 8.4 L Total Bilirubin 0.7 AST 18 ALT 24 Alkaline Phosphatase 39 L Total Protein 6.3 L Albumin 3.4 Stool Occult Blood Crossmatch 01/20/19 17:45 RBC 4.02 MCV 59.1 L MCHC 28.8 L RDW 16.8 H MPV 7.5 Neutrophils % Senior Art Director Lymphocytes % Senior Art Director Monocytes % Senior Art Director Eosinophils % Senior Art Director Basophils % Senior Art Director - RADIOLOGY Radiology Studies Ordered: Category Date Time Status CXRPORT [CHEST X-RAY PORTABLE*] [RAD] Stat Radiology 01/20/19 18:07 Taken Medical Decision Making - Medical Decision Making 01/20/19 18:58 Several year history of anemia presents with fatigue for the last week found to be anemic on outpatient labs here in the emergency department today patient was anemic to hemoglobin of 6.8 Guaiac negative brown stool no history of bleeding had a colonoscopy 4 years ago in [place] with no evidence of bleeding We will admit to hospital for further management anemia work-up blood transfusion Discharge - Discharge Information Problems reviewed: Yes Clinical Impression/Diagnosis: Anemia Condition: Stable - Admission Yes - Follow up/Referral - Patient Discharge Instructions - Post Discharge Activity
[2019-01-20 19:53] LABS: ANISOCYTOSIS 1+; PLATELET ESTIMATE ADEQUATE
[2019-01-20 20:43] LABS: RETICULOCYTES 2.07 % (0.5-1.5)
[2019-01-20 20:47] VITALS: BMI 31.4
[2019-01-21] MEDS ORDERED: FUROSEMIDE 40 MG/4 ML INJECTABLE VIAL IVPUSH ONE (01:00)
[2019-01-21 06:56] VITALS: BP 123/73; PULSE 64; TEMP 98
[2019-01-21 08:42] LABS: ALBUMIN 3.7 g/dl (3.4-5.0); BILIRUBIN,TOTAL 1.3 mg/dl (0.2-1); CREATININE 1.1 mg/dl (0.55-1.3); POTASSIUM 4.5 mmol/L (3.5-5.1); TOT PROT 6.8 g/dl (6.4-8.2)
[2019-01-21 08:44] LABS: BASO % 0.4 % (0-2.0); EOS % 2.6 % (0-4.5); HEMATOCRIT 29.1 % (35.4-49); HEMOGLOBIN 9.1 GM/dl (11.7-16.9); LYMPH % 17.8 % (8-40); MCHC 31.1 g/dl (32.0-35.9); MEAN CELL VOLUME 62.3 fl (80-96); MEAN PLT VOLUME 8.5 fl (7.5-11.1); MONO % 15.2 % (3.8-10.2); PLATELET COUNT 301 K/MM3 (134-434); RBC 4.67 M/mm3 (4.00-5.60); RDW 18.8 % (11.9-15.9); WHITE BLOOD COUNT 5.4 K/mm3 (4.0-10.8)
[2019-01-21 08:50] LABS: MCH 19.4 pg (25.7-33.7)
--- NOTE | 2019-01-21 13:06 | DS ---
Physical Exam: SUBJECTIVE: Patient seen and examined. Pt reports felling better, denies dizziness, weakness, cp, sob, palpitations, abdominal pain, N/V/D, hematochezia or melena. OBJECTIVE: Vital Signs Period Temp Pulse Resp BP Sys/Gamino Pulse Ox Last 24 Hr 97.8 F-99.1 F 64-79 16-18 112-143/62-89 98-100 PHYSICAL EXAM GENERAL: The patient is awake, alert, and fully oriented, in no acute distress. HEAD: Normal with no signs of trauma. EYES: PERRL, extraocular movements intact, sclera anicteric, conjunctiva clear. ENT: Ears normal, nares patent, oropharynx clear without exudates, moist mucous membranes. NECK: Trachea midline, full range of motion, supple. LUNGS: Breath sounds equal, clear to auscultation bilaterally, no wheezes, no crackles, no accessory muscle use. HEART: Regular rate and rhythm, S1, S2 without murmur, rub or gallop. ABDOMEN: Soft, nontender, nondistended, normoactive bowel sounds, no guarding, no rebound, no hepatosplenomegaly, no masses. EXTREMITIES: 2+ pulses, warm, well-perfused, no edema. NEUROLOGICAL: Cranial nerves II through XII grossly intact. Normal speech, gait not observed. PSYCH: Normal mood, normal affect. SKIN: Warm, dry, normal turgor, no rashes or lesions noted. LABS Laboratory Results - last 24 hr 01/20/19 01/20/19 01/20/19 17:45 17:45 17:45 WBC 4.4 RBC 4.02 Hgb 6.8 L* Hct 23.8 L MCV 59.1 L MCH 17.0 L MCHC 28.8 L RDW 16.8 H Plt Count 270 MPV 7.5 Absolute Neuts (auto) 2.5 Neutrophils % Desulfurizer Operator Neutrophils % (Manual) 74.0 Lymphocytes % Desulfurizer Operator Lymphocytes % (Manual) 16.0 Monocytes % Desulfurizer Operator Monocytes % (Manual) 7 Eosinophils % Desulfurizer Operator Eosinophils % (Manual) 3.0 Basophils % Desulfurizer Operator Hypochromia 3+ Platelet Estimate Adequate Anisocytosis 1+ Microcytosis 3+ Retic Count 2.07 H PT with INR INR PTT (Actin FS) 33.7 Sodium 136 Potassium 4.1 Chloride 107 Carbon Dioxide 25 Anion Gap 4 L BUN 21.0 H Creatinine 1.1 Est GFR (CKD-EPI)AfAm 88.98 Est GFR (CKD-EPI)NonAf 76.77 Random Glucose 96 Calcium 8.4 L Magnesium Iron TIBC Iron Saturation Unsaturated IBC Ferritin Total Bilirubin 0.7 AST 18 ALT 24 Alkaline Phosphatase 39 L Total Protein 6.3 L Albumin 3.4 Vitamin B12 Serum Folate Stool Occult Blood Blood Type Antibody Screen Crossmatch 01/20/19 01/20/19 01/20/19 17:45 17:45 17:45 WBC RBC Hgb Hct MCV MCH MCHC RDW Plt Count MPV Absolute Neuts (auto) Neutrophils % Neutrophils % (Manual) Lymphocytes % Lymphocytes % (Manual) Monocytes % Monocytes % (Manual) Eosinophils % Eosinophils % (Manual) Basophils % Hypochromia Platelet Estimate Anisocytosis Microcytosis Retic Count PT with INR 16.6 H INR 1.49 H PTT (Actin FS) Sodium Potassium Chloride Carbon Dioxide Anion Gap BUN Creatinine Est GFR (CKD-EPI)AfAm Est GFR (CKD-EPI)NonAf Random Glucose Calcium Magnesium Iron TIBC Iron Saturation Unsaturated IBC Ferritin Total Bilirubin AST ALT Alkaline Phosphatase Total Protein Albumin Vitamin B12 Serum Folate Stool Occult Blood Blood Type A POSITIVE A POSITIVE Antibody Screen Negative Crossmatch See Detail 01/20/19 01/20/19 01/21/19 18:10 19:00 07:45 WBC 5.4 RBC 4.67 Hgb 9.1 L Hct 29.1 L D MCV 62.3 L MCH 19.4 L MCHC 31.1 L RDW 18.8 H D Plt Count 301 MPV 8.5 D Absolute Neuts (auto) 3.5 Neutrophils % 64.0 Neutrophils % (Manual) Lymphocytes % 17.8 Lymphocytes % (Manual) Monocytes % 15.2 H Monocytes % (Manual) Eosinophils % 2.6 Eosinophils % (Manual) Basophils % 0.4 Hypochromia Platelet Estimate Anisocytosis Microcytosis Retic Count PT with INR INR PTT (Actin FS) Sodium Potassium Chloride Carbon Dioxide Anion Gap BUN Creatinine Est GFR (CKD-EPI)AfAm Est GFR (CKD-EPI)NonAf Random Glucose Calcium Magnesium Iron 15 L TIBC 386 Iron Saturation 3 L Unsaturated IBC 371 H Ferritin 2.8 L Total Bilirubin AST ALT Alkaline Phosphatase Total Protein Albumin Vitamin B12 359 Serum Folate 22 H Stool Occult Blood Negative Blood Type Antibody Screen Crossmatch 01/21/19 07:45 WBC RBC Hgb Hct MCV MCH MCHC RDW Plt Count MPV Absolute Neuts (auto) Neutrophils % Neutrophils % (Manual) Lymphocytes % Lymphocytes % (Manual) Monocytes % Monocytes % (Manual) Eosinophils % Eosinophils % (Manual) Basophils % Hypochromia Platelet Estimate Anisocytosis Microcytosis Retic Count PT with INR INR PTT (Actin FS) Sodium 137 Potassium 4.5 Chloride 103 Carbon Dioxide 26 Anion Gap 8 BUN 19.0 H Creatinine 1.1 Est GFR (CKD-EPI)AfAm 88.98 Est GFR (CKD-EPI)NonAf 76.77 Random Glucose 96 Calcium 9.0 Magnesium 2.0 Iron TIBC Iron Saturation Unsaturated IBC Ferritin Total Bilirubin 1.3 H AST 19 ALT 24 Alkaline Phosphatase 44 L Total Protein 6.8 Albumin 3.7 Vitamin B12 Serum Folate Stool Occult Blood Blood Type Antibody Screen Crossmatch HOSPITAL COURSE: Date of Admission:01/20/19 Date of Discharge: 01/21/19 This is a 53 year-old male with a PMH significant for HTN, HLD, chronic anemia, sleep apnea, and anxiety who went to see his PCP Dr. Melendez. Lab revealed Hgb was 7.6 and referred to the ED. On arrival to the ED, repeat blood work showed Hgb 6.8, HCT 23.8. Stool occult was negative. Pt received 2 units blood, repeat CBC showed, H/H 9.1/29.1. Pt remains asymptomatic, rec out pt pmd and Hematology. Minutes to complete discharge: 35 Discharge Summary Problems reviewed: Yes Reason For Visit: ANEMIA Condition: Stable - Instructions Diet, Activity, Other Instructions: Regular Heart Healthy Diet. Watch out for any bleeding. Referrals: Cristian Melendez MD [Staff Physician] - 2 Weeks Freeman Bower MD [Staff Physician] - 1 Week Disposition: HOME - Home Medications Comprehensive Discharge Medication List: Ambulatory Orders NK [No Known Home Medication] 01/20/19 This patient is new to me today: Yes Date on this admission: 01/21/19 Emergency Visit: Yes ED Registration Date: 01/20/19 Care time: The patient presented to the Emergency Department on the above date and was hospitalized for further evaluation of their emergent condition. Critical Care patient: No - Discharge Referral Referred to [facility] Med P.C.: No
--- NOTE | 2019-01-21 23:25 | EKG ---
Test Reason : Blood Pressure : / mmHG Vent. Rate : 072 BPM Atrial Rate : 072 BPM P-R Int : 180 ms QRS Dur : 112 ms QT Int : 394 ms P-R-T Axes : 051 -38 025 degrees QTc Int : 431 ms NORMAL SINUS RHYTHM LEFT AXIS DEVIATION ABNORMAL ECG WHEN COMPARED WITH ECG OF 14-JUL-2017 15:06, NO SIGNIFICANT CHANGE WAS FOUND Confirmed by JAIZEL MAZARIEGOS MD ([id number]) on 01/21/2019 11:25:14 PM Referred By: MD FANG Confirmed By:JAZIEL MAZARIEGOS MD
== END 2019-01-21 11:27 | disposition home or self-care (01) | DRG 812 ==
LOC: FER 17:17 → FM/S 18:59
PROVIDERS: ADMIT Internal Medicine; ATTEND Nurse Practitioner Family
PROC: 30233N1 Transfusion of Nonautologous Red Blood Cells into Peripheral Vein, Percutaneous Approach (ICD-10-PCS; principal; 2019-01-20)
DX: D50.9 Iron deficiency anemia, unspecified (principal); G47.30 Sleep apnea, unspecified; F41.9 Anxiety disorder, unspecified; I10 Essential (primary) hypertension; E78.5 Hyperlipidemia, unspecified
CPT/HCPCS: 36415; 36430; 36511; 71045-TC-FY; 80053; 82272; 82607; 82728; 82746; 83540; 83550; 83735; 84466; 85025; 85044; 85610; 85730; 86850; 86900; 86901; 86922; 93005; 99285-25; P9038; P9058

== ENCOUNTER 2019-03-14 10:37 | Emergency (ER) | payer OTHER, BC ==
[2019-03-14 10:53] VITALS: BP 121/84; PULSE 89; TEMP 97.8; BMI 30.2
[2019-03-14] MEDS ORDERED: IBUPROFEN 400 MG TABLET (FP) PO ONE ×2 (11:03→11:07)
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
== END 2019-03-14 11:20 | disposition home or self-care (01) ==
LOC: JERFT 10:37
DX: S60.222A Contusion of left hand, initial encounter (principal); S00.81XA Abrasion of other part of head, initial encounter; Y35.811A Legal intervention involving manhandling, law enforcement official injured, initial encounter; Y93.89 Activity, other specified; Y92.89 Other specified places as the place of occurrence of the external cause; Y99.0 Civilian activity done for income or pay
CPT/HCPCS: 99282-25